=== PATIENT | female | born 1995 | race Caucasian/White ===

== ENCOUNTER 2024-09-03 18:19 | Emergency (ER) | payer SELFPAY ==
[2024-09-03 18:26] VITALS: BP 100/72; PULSE 90; RESP 16; TEMP 37.2; O2SAT 100
--- NOTE | 2024-09-03 18:34 | ED_ITS ---
HPI - URI/Sore Throat General Chief Complaint: Upper Respiratory Infection Stated Complaint: Fever/Sore Throat/Body Aches Time Seen by Provider: 09/03/24 18:34 Source: patient Mode of arrival: ambulatory Limitations: no limitations History of Present Illness HPI Narrative: 28-year-old female presents with complaint of sore throat, fatigue, body aches for 2 days. Afebrile. Denies nausea vomiting. not Taking any qcso-[id number]-[id number] pain medication to treat symptoms. all systems reviewed and negative except as noted above. Related Data Home Medications ?Medication ?Instructions ?Recorded ?Confirmed ?Last Taken ?Type No Home Medications 09/03/24 09/03/24 Unknown History Allergies Allergy/AdvReac Type Severity Reaction Status Date / Time No Known Allergies Allergy Verified 09/03/24 18:34 Review of Systems Review of Systems: CONSTITUTIONAL: Denies fever, chills, or sweats. EYES: Denies visual changes, redness, or discharge. ENT: Denies rhinorrhea, congestion . Reports sore throat. Denies otalgia. CARDIOVASCULAR: Denies chest pain, palpitations, or edema. RESPIRATORY: Denies cough or dyspnea. GASTROINTESTINAL: Denies abdominal pain, nausea, vomiting, or diarrhea. GENITOURINARY: Denies dysuria or hematuria. SKIN: Denies rash or itching. MUSCULOSKELETAL: Denies back pain, joint pain, or myalgia. NEUROLOGIC: Denies headache, numbness, or weakness. PSYCHIATRIC: Denies anxiety or depression. All other systems reviewed are negative, except as documented in HPI. PMFSH Comments At time of signature, agree with nursing past medical, surgical, social and family history. There is no relevant family history pertinent to the presenting complaint. Exam Narrative: GENERAL: This is a well-nourished, well-developed patient, in no apparent distress. HEAD: normocephalic, atraumatic. EYES: PERRL. Sclera clear/white. Vision is grossly intact. EARS: External ears normal, auditory canals clear and without drainage, TMs normal without perforation. Hearing grossly intact. NOSE: External nose normal with no obvious nasal discharge, nares without redness, no rhinorrhea. THROAT: Mucous membranes moist, mild erythema postnasal drainage. No swelling or exudates. NECK: Neck supple, non-tender without lymphadenopathy, masses or thyromegaly. CARDIOVASCULAR: Regular rate and rhythm without murmurs, gallops, or rubs. RESPIRATORY: Clear to auscultation. Breath sounds equal bilaterally. No wheezes, rales, or rhonchi. SKIN: warm, Dry, intact with no suspicious lesions or rash, good texture and turgor. NEURO: awake, alert, and oriented to person, place and time. There were no obvious focal neurologic abnormalities. EXTREMITIES: No joint tenderness, effusion, or edema noted. Course Course Level of Care: Express Care Visit Vital Signs Vital signs: Vital Signs Temperature 37.2 C 09/03/24 18:26 Pulse Rate 90 09/03/24 18:26 Respiratory Rate 16 09/03/24 18:26 Blood Pressure 100/72 09/03/24 18:26 Pulse Oximetry 100 09/03/24 18:26 Oxygen Delivery Room Air 09/03/24 18:26 Temperature 37.2 C 09/03/24 18:26 Pulse Rate 90 09/03/24 18:26 Respiratory Rate 16 09/03/24 18:26 Blood Pressure 100/72 09/03/24 18:26 Pulse Oximetry 100 09/03/24 18:26 Oxygen Delivery Room Air 09/03/24 18:26 Reviewed MDM - URI/Sore Throat MDM Narrative Medical decision making narrative: rapid strep negative. Strep culture ordered. Recommend [id number] antihistamine to treat postnasal drainage. Will wait for strep culture. Exam findings show no acute concerns or changes; patient is non-toxic appearing and is in no distress. Patient is appropriate for outpatient treatment and follow-up. Lab Data Labs: Lab Results 09/03/24 Range/Units 18:39 POC Grp A Strep Screen Negative (Negative) Discharge Plan Discharge Clinical Impression: Acute pharyngitis, Post-nasal drainage Patient Disposition: Home Condition: Stable Instructions: Pharyngitis (ED) Additional Instructions: YOur strep test was negative today. A strep culture was ordered and results will take 24-48 hours. If your strep culture is positive we will call you at that time and prescribed an antibiotic. Take Tylenol or ibuprofen every 6-8 hours as needed for pain. Taking [id number]-[id number] antihistamine daily such as Claritin or Zyrtec to treat postnasal drainage. Drink plenty of water and rest. Patient Language: [place] Prescriptions: No Action No Home Medications Follow-up/Referrals: UNKNOWN,DOCTOR [Primary Care Provider] - Time of Disposition: 18:44
[2024-09-03 18:41] LABS: EDSTREPNEGPOS1 Negative (Negative)
== END 2024-09-03 18:35 | disposition home or self-care (01) ==
PROVIDERS: Emergency Provider Nurse Practitioner Family
DX: J02.9 Acute pharyngitis, unspecified (principal); R09.82 Postnasal drip
CPT/HCPCS: 87081; 87880; 99203; G0463